=== PATIENT | female | born 1985 | race Caucasian/White ===

== ENCOUNTER 2022-05-30 05:34 | Inpatient (IN) ==
[2022-05-30] MEDS ORDERED: ceFAZolin 2,000 MG/50 ML DUPLEX IV ONE (06:05)
[2022-05-30] MEDS ORDERED: CARBOPROST TROMETHAMINE 250 MCG/ML AMP IM PRN (06:05)
[2022-05-30] MEDS ORDERED: OXYTOCIN/LR 20 UNIT/1,000 ML BAG IV ONE ×2 (06:05→09:22)
[2022-05-30] MEDS ORDERED: FAMOTIDINE 20 MG/2 ML VIAL IV ONE (06:05)
[2022-05-30] MEDS ORDERED: METHYLERGONOVINE 0.2 MG/1 ML AMP IM PRN (06:05)
[2022-05-30] MEDS ORDERED: miSOPROStoL 200 MCG TABLET RECTAL PRN (06:05)
[2022-05-30] MEDS ORDERED: TRANEXAMIC ACID 1,000 MG in SODIUM CHLORIDE 0.9% 100 ML IV PRN (06:05)
[2022-05-30] MEDS ORDERED: CITRIC ACID/SODIUM CITRATE 30 ML UDCUP PO ONE (06:05)
[2022-05-30 06:24] LABS: Basophils % 0.2 % (0.0-0.8); Eosinophils # 0.1 10*3/uL (0.0-0.87); Eosinophils % 0.9 % (0.00-10.9); Hemoglobin 11.4 GM/DL (12.0-16.0); Immature Granulocytes % 0.5 %; Immature Granulocytes Absolute 0.03 #; Lymphocytes # 1.6 10*3/uL (1.4-4.0); Lymphocytes % 26.7 % (21.3-54.2); Mean Corpuscular HGB Conc 32.6 GM/DL (32-36); Mean Corpuscular Volume 87.9 FL (87-102); Mean Platelet Volume 11.7 FL (9.6-12.0); Monocytes # 0.6 10*3/uL (0.11-0.8); Monocytes % 10.4 % (1.7-12.7); Neutrophils % 61.3 % (38.7-73.9); Platelet Count 179 T/CUMM (130-400); Red Blood Count 3.98 MC/CUMM (3.8-5.5); Red Cell Distribution Width 14.8 % (9.3-17.3); White Blood Count 5.9 T/CUMM (4-12)
[2022-05-30] MEDS ORDERED: LACTATED RINGERS 1,000 ML IV SCH ×2 (06:30→09:30)
[2022-05-30 06:53] LABS: Alanine Aminotransferase 21 U/L (13-56); Albumin 2.8 G/DL (3.4-5.0); Alkaline Phosphatase 134 U/L (45-117); Aspartate Amino Transferase 26 U/L (0-37); Bilirubin,Total < 0.39 MG/DL (0.20-1.00); Blood Urea Nitrogen 15 MG/DL (7-18); Calcium 9.3 MG/DL (8.5-10.1); Carbon Dioxide 21 MMOL/L (21-32); Chloride 109 MMOL/L (98-107); Glucose 78 MG/DL (74-106); Osmolality,Calculated 276.5 MOS/KG (273-304); Potassium 3.5 MMOL/L (3.5-5.1); Sodium 139 MMOL/L (136-145); Total Protein 7.2 G/DL (6.4-8.2)
[2022-05-30] MEDS ORDERED: KETOROLAC 30 MG/1 ML VIAL ONE (07:53)
[2022-05-30] MEDS ORDERED: DEXAMETHASONE 4 MG/1 ML VIAL ONE (07:53)
[2022-05-30] MEDS ORDERED: ACETAMINOPHEN INJ 1,000 MG/100 ML VIAL IV ONE (07:53)
[2022-05-30] MEDS ORDERED: ONDANSETRON 4 MG/2 ML VIAL ONE (07:53)
[2022-05-30] MEDS ORDERED: buprenorphine HCL 0.3 MG/ML VIAL ONE (07:54)
[2022-05-30] MEDS ORDERED: PHENYLEPHRINE 1 MG/10 ML SYRINGE IV ONE (07:55)
[2022-05-30] MEDS ORDERED: ePHEDrine 50 MG/ML VIAL ONE (08:14)
[2022-05-30] MEDS ORDERED: LACTATED RINGERS 1,000 ML IV ONE (08:20)
[2022-05-30 08:49] LABS: Cord Arterial Blood HCO3 19.4 MMOL/L
[2022-05-30 08:52] LABS: Cord Venous Blood HCO3 20.5 MMOL/L; Cord Venous Blood PCO2 39.3 MMHG
[2022-05-30 08:59] LABS: Mucus,Urine Occasional /LPF (Occasional); RBC,Urine 1 /HPF (0-4); Squamous Epithelial Cell,Urine Occasional /HPF (0-10)
[2022-05-30 09:00] LABS: Bilirubin,Urine Negative (Negative); Blood, Urine Negative (Negative); Glucose,Urine (UA) Negative (Negative); Ketones,Urine Negative (Negative); Nitrite,Urine Negative (Negative); Protein,Urine Negative (Negative); Urine Appearance Clear (Clear); Urine Color Yellow (Yellow); Urine Urobilinogen 0.2 eU/dL (<2.0)
[2022-05-30] MEDS ORDERED: SIMETHICONE CHEW 80 MG TABLET PO PRN (09:22)
[2022-05-30] MEDS ORDERED: ONDANSETRON 4 MG/2 ML VIAL IV PRN (09:22)
[2022-05-30] MEDS ORDERED: ACETAMINOPHEN 325 MG TABLET PO PRN (09:22)
[2022-05-30] MEDS ORDERED: RHO(D) IMMUNE GLOBULIN 300 MCG SYRINGE IM ONE (09:22)
[2022-05-30 11:47] LABS: Rubella Antibody IgG Result Reactive (NonReactive)
[2022-05-30] MEDS ORDERED: ACETAMINOPHEN 500 MG TABLET PO SCH (13:30)
[2022-05-30] MEDS ORDERED: KETOROLAC 30 MG/1 ML VIAL IV SCH (15:30)
[2022-05-30] MEDS: KETOROLAC 30 MG/1 ML VIAL IV SCH ×2 (15:50→22:13)
[2022-05-30] MEDS: ACETAMINOPHEN 500 MG TABLET PO SCH ×2 (15:51→21:34)
[2022-05-30 20:50] LABS: Basophils % 0.1 % (0.0-0.8); Hemoglobin 8.8 GM/DL (12.0-16.0); Immature Granulocytes % 0.5 %; Immature Granulocytes Absolute 0.05 #; Lymphocytes # 0.8 10*3/uL (1.4-4.0); Lymphocytes % 7.5 % (21.3-54.2); Mean Corpuscular HGB Conc 32.6 GM/DL (32-36); Mean Corpuscular Volume 88.2 FL (87-102); Mean Platelet Volume 11.3 FL (9.6-12.0); Monocytes # 0.7 10*3/uL (0.11-0.8); Monocytes % 6.5 % (1.7-12.7); Neutrophils % 85.4 % (38.7-73.9); Platelet Count 151 T/CUMM (130-400); Red Blood Count 3.06 MC/CUMM (3.8-5.5); Red Cell Distribution Width 14.7 % (9.3-17.3); White Blood Count 10.1 T/CUMM (4-12)
[2022-05-31] MEDS: DOCUSATE SODIUM 100 MG CAPSULE PO SCH ×3 (00:45→20:33)
[2022-05-31] MEDS: KETOROLAC 30 MG/1 ML VIAL IV SCH (05:25)
[2022-05-31 06:30] LABS: Basophils % 0.2 % (0.0-0.8); Eosinophils % 0.3 % (0.00-10.9); Hematocrit 27.8 VOL% (35.7-47.0); Hemoglobin 8.7 GM/DL (12.0-16.0); Immature Granulocytes % 0.4 %; Immature Granulocytes Absolute 0.04 #; Lymphocytes # 1.5 10*3/uL (1.4-4.0); Mean Corpuscular HGB Conc 31.3 GM/DL (32-36); Mean Corpuscular Volume 91.1 FL (87-102); Mean Platelet Volume 11.8 FL (9.6-12.0); Monocytes # 0.8 10*3/uL (0.11-0.8); Monocytes % 8.6 % (1.7-12.7); Neutrophils % 73.5 % (38.7-73.9); Platelet Count 163 T/CUMM (130-400); Red Blood Count 3.05 MC/CUMM (3.8-5.5); Red Cell Distribution Width 14.9 % (9.3-17.3); White Blood Count 9.1 T/CUMM (4-12)
[2022-05-31] MEDS: MAGNESIUM HYDROXIDE SUSP 30 ML UDCUP PO PRN ×2 (08:37→20:32)
[2022-05-31] MEDS: MULTIVITAMIN (PRENATAL) TABLET PO SCH (08:37)
[2022-05-31] MEDS: oxyCODONE/ACETAMINOPHEN 5-325 MG TABLET PO PRN ×3 (08:44→20:35)
[2022-05-31] MEDS: IBUPROFEN 800 MG TABLET PO PRN ×2 (12:07→20:36)
[2022-06-01] MEDS: IBUPROFEN 800 MG TABLET PO PRN ×2 (03:27→09:19)
[2022-06-01 09:01] VITALS: BP 120/74
[2022-06-01] MEDS: DOCUSATE SODIUM 100 MG CAPSULE PO SCH (09:18)
[2022-06-01] MEDS: MULTIVITAMIN (PRENATAL) TABLET PO SCH (09:18)
== END 2022-06-01 12:00 | disposition home or self-care (01) | DRG 788 ==
LOC: N.LD 05:34 → N.OB 11:29
PROVIDERS: ADMIT Obstetrics & Gynecology; ATTEND Obstetrics & Gynecology
PROC: LDCSECT (ICD-10-PCS; 2022-05-30 07:30)